=== PATIENT | male | born 1995 | race Caucasian/White ===

== ENCOUNTER 2018-04-15 14:37 | Emergency (ER) | payer SELFPAY ==
[~2018-04-15] VITALS: Ht 175.3 cm; Wt 76.3 kg
[2018-04-15 14:41] VITALS: Ht 175.3 cm; Wt 76.3 kg
[2018-04-15 16:56] VITALS: BP 121/64
== END 2018-04-15 16:56 | disposition home or self-care (01) ==
LOC: ED 14:37
DX: L03.116 Cellulitis of left lower limb (principal); L03.115 Cellulitis of right lower limb

== ENCOUNTER 2019-09-18 10:30 | Emergency (ER) | payer OTHER ==
[~2019-09-18] VITALS: Ht 172.7 cm; Wt 75.7 kg
[2019-09-18 10:36] VITALS: BP 116/76; Ht 172.7 cm; Wt 75.7 kg
== END 2019-09-18 12:22 | disposition home or self-care (01) ==
LOC: ED 10:30
DX: B34.9 Viral infection, unspecified (principal)

== ENCOUNTER 2019-10-16 19:17 | Emergency (ER) | payer OTHER ==
[~2019-10-16] VITALS: Ht 175.3 cm; Wt 80.3 kg
[2019-10-16 19:52] VITALS: BP 94/64; Ht 175.3 cm; Wt 80.3 kg
== END 2019-10-16 21:27 | disposition home or self-care (01) ==
LOC: ED 19:17
DX: S61.412A Laceration without foreign body of left hand, initial encounter (principal); W54.0XXA Bitten by dog, initial encounter; Y93.89 Activity, other specified; Y92.89 Other specified places as the place of occurrence of the external cause; Y99.8 Other external cause status
CPT/HCPCS: 90715